=== PATIENT | male | born 1940 | race Caucasian/White ===

== ENCOUNTER 2016-05-11 06:27 | Inpatient (IN) | payer OTHER ==
[2016-04-10 14:03] VITALS: BMI 32.0
--- NOTE | 2016-04-10 14:37 | PAT Medication Instructions ---
Service Date Apr 10, 2016. Current Home Medication List Aspirin (Aspirin Ec), 325 MG PO HS Atenolol (Tenormin), 50 MG PO QPM Atorvastatin (Lipitor), 20 MG PO DHS Glimepiride (Glimepiride), 1 TAB PO QAM Levothyroxine Sodium (Levothyroxine Sodium), 1 TAB PO QAM Metformin Hcl (Glucophage), 500 MG PO BID Psyllium (Metamucil), 1 DOSE PO HS Medication Instructions For Your Scheduled Surgery - Instructions as follows: 10 days prior to surgery, switch from Aspirin 325mg to Aspirin 81mg ('baby aspirin') and continue to take the baby aspirin even the night before the surgery - Hold the following medications 48 hours prior to surgery: Metformin Hcl (Glucophage), 500 MG PO BID - Hold the following medications the morning of surgery: Glimepiride (Glimepiride), 1 TAB PO QAM - Take the following medications the morning of surgery with a sip of water OTHERWISE NOTHING TO EAT OR DRINK AFTER MIDNIGHT: Levothyroxine Sodium (Levothyroxine Sodium), 1 TAB PO QAM - Take the following medications as scheduled the night before surgery: Atorvastatin (Lipitor), 20 MG PO DHS Psyllium (Metamucil), 1 DOSE PO HS Atenolol (Tenormin), 50 MG PO QPM Aspirin 81mg If you have any questions please call us at [phone] or [phone] or [phone]
--- NOTE | 2016-04-10 16:00 | DIAGNOSTIC IMAGING REPORT ---
CHEST PREADMISSION(PA/LAT) CLINICAL HISTORY: Preoperative evaluation COMPARISON STUDY: Chest radiograph May 24, 2012 FINDINGS: Lung volumes are normal. There is no pneumothorax or pleural effusion. Pulmonary vascularity is normal. Cardiac size is normal. Mediastinal contours are stable. Numerous calcified nodules within the lungs are unchanged. This suggests a prior granulomatous process. No consolidation is identified. IMPRESSION: No acute cardiopulmonary findings. Electronically signed by: Mitchel Emerson M.D. 04/10/2016 3:59 PM
[2016-04-10 16:02] LABS: PROTHROMBIN TIME (PATIENT) 10.5 SECONDS (9.0-12.0)
--- NOTE | 2016-05-06 11:11 | HISTORY & PHYSICAL EXAMINATION ---
DATE OF ADMISSION: 05/11/2016 CHIEF COMPLAINT: Right medial knee pain and discomfort. HISTORY OF PRESENT ILLNESS: The patient is a 75-year-old gentleman now 9 years out from a left partial knee replacement who presents for treatment of his right knee. He has got a several year history of increasing right knee pain and discomfort. He describes it has just gotten worse over time. Pain is localized medial side of his knee. He has has been through extensive conservative treatment including oral medicines and injections. The shots helped him pretty minimally. He is having more difficulty getting around. He would like to proceed with definitive treatment/knee replacement. He is very happy with his left knee and if possible he wanted to do a partial knee replacement on the right. PAST MEDICAL HISTORY: 1. Coronary artery disease, status post cardiac stent placement in 2001 done in [place]. 2. One aspirin a day. 3. Hypertension. 4. Elevated cholesterol. 5. Diabetes. 6. Back pain status post multiple back surgeries. 7. Gastroesophageal reflux disease. 8. Kidney stones. 9. BPH. PAST SURGICAL HISTORY: Includes: 1. Three back surgeries. 2. Left partial knee replacement done 05/31/2007. 3. Herniorrhaphy. 4. Appendectomy. ALLERGIES: SULFA. CURRENT MEDICINES: Include: 1. Metformin 1000 mg in the morning. 2. Glimepiride 1 mg in the morning. 3. Atenolol 50 mg once a day. 4. Atorvastatin 20 mg a day. 5. Levothyroxine 100 mcg a day. 6. Ana Aspirin 325 once a day. 7. Metamucil once a day. SOCIAL HISTORY: male. He is from [place]. He is 75. FAMILY HISTORY: Noncontributory. REVIEW OF SYSTEMS: Significant for diabetes. Denies any current chest pain, shortness of breath. No history of DVT or PE. He does have a cardiac stent placed. PHYSICAL EXAMINATION: GENERAL: Physical examination reveals a healthy, pleasant, middle-aged male. He looks to be in pretty good health. HEAD, EYES, EARS, NOSE, AND THROAT EXAMINATION: Benign. NECK: Supple. No lymphadenopathy. LUNGS: Clear to auscultation. HEART: Regular rate and rhythm. ABDOMEN: Soft, nontender, nondistended. EXTREMITY EXAMINATION: Grossly neurovascularly intact except as follows: Examination of the right knee reveals the patient walks with a slight bit of a limp. He has got varus alignment to his knee. He is tender over the medial joint line. He has got some slight bony hypertrophy medially. Range of motion is near full extension to 125 degrees of flexion. No instability. X-RAYS: X-rays of the right knee reviewed. It shows advanced medial compartment DJD. He has got well preserved lateral joint space. He has got complete loss of the medial joint space. With stress films the lateral compartment is well preserved. He has got some mild patellofemoral arthritis. ASSESSMENT: A 75-year-old gentleman 9 years out from a left partial knee replacement with advanced medial compartment DJD in the right knee. He has failed conservative treatment, would like to have a partial knee replacement on his right side. PLAN: We are going to take her to the operating room and do a right partial knee replacement. If we get in there and it is too bad we will do a full knee replacement. The risks and benefits of this procedure were explained to the patient including but not limited to DVT, PE, , infection, neurological injury, vascular injury, bleeding problem, pain, limited range of motion, stiffness, failure to relieve symptoms, incomplete relief of symptoms, need for further surgery in the future, fracture, leg length inequality, nerve palsy, and dislocation of the implant. The patient understands and desires to proceed. Informed consent was obtained. We did talk to him about holding his metformin 2 days preop. He will make sure he takes his atenolol and levothyroxine mcg the morning of surgery. I will be seeing him back 2 weeks postop.
[2016-05-11] VITALS (11 sets, daily range): BP systolic 121–147; BP diastolic 68–86; PULSE 51–61; TEMP 36.3–37.1; O2SAT 95–98; Ht 172.7 cm; Wt 97.4 kg
[~2016-05-11] VITALS: Ht 172.7 cm; Wt 97.4 kg
[~2016-05-11 06:27] MED LIST: ACETAMINOPHEN 500 MG TAB PO SCH; ASPI325T39 PO; ATEN-174 PO; ATOR-22 PO; BUPIVACAINE LIPOSOME 266 MG, BUPIVACAINE/EPINEPHRINE INJ 50 ML, SODIUM CHLORIDE 0.9% PF... INFIL SCH; CEFAZOLIN 2000 MG/60 ML D5W 60 ML IV SCH; FAMOTIDINE 20 MG TAB PO SCH; GABAPENTIN 300 MG CAP PO SCH; GLC/500 PO; GLIM1TAB2 PO; LACTATED RINGER'S 1000ML IV SCH; LACTATED RINGER'S 500 ML IV SCH; LEVO100T7 PO; METOCLOPRAMIDE HCL 10 MG TAB PO SCH; PSYL0.524 PO; SCOPOLAMINE 1.5 MG TDSY TD SCH; TRAMADOL HCL 50 MG TAB PO SCH
[2016-05-11] MEDS ORDERED: TRANEXAMIC ACID INJ 1,000 MG in SODIUM CHLORIDE 0.9% 100ML 100 ML IV SCH ×2 (06:30→17:00)
[2016-05-11] MEDS ORDERED: BUPIVACAINE LIPOSOME 1/3% 266 MG/20 ML VIAL INFIL ONE (06:50)
--- NOTE | 2016-05-11 06:51 | History & Physical Bridge Note ---
H&P Re-Evaluation Bridge Note: I have examined the patient, reviewed the History & Physical and in the interval since the performance of the History & Physical I have noted the following changes of clinical significance: No changes noted
[2016-05-11] MEDS ORDERED: BUPIVACAINE 0.5 % 5 MG/1 ML PF 10ML VIAL ONE (07:04)
[2016-05-11] MEDS ORDERED: BUPIVACAINE 0.25% 30 ML VIAL ONE (07:05)
[2016-05-11] MEDS ORDERED: MIDAZOLAM HCL 1 MG/ML 2ML VIAL ONE (07:24)
[2016-05-11] MEDS ORDERED: FENTANYL CITRATE INJ 50 MCG/1 ML 2 ML VIAL IV PRN (07:30)
[2016-05-11] MEDS ORDERED: ONDANSETRON INJ 2 MG/ML 2 ML VIAL IV PRN ×2 (07:30→11:00)
[2016-05-11] MEDS ORDERED: EpHEDrine SULFATE INJ 50 MG/ML AMP IV PRN (07:30)
[2016-05-11] MEDS ORDERED: ATROPINE SULFATE 0.1 MG/ML 5ML SYR IV PRN (07:30)
[2016-05-11] MEDS ORDERED: PROPOFOL IV EMULSION 10 MG/ML 20 ML VIAL IV ONE (09:19)
[2016-05-11] MEDS ORDERED: BACITRACIN 50000 UNIT VIAL IR ONE (10:53)
--- NOTE | 2016-05-11 10:59 | [facility] Post Operative Brief Note ---
Immediate Operative Summary Operative Date May 11, 2016. Pre-Operative Diagnosis Degenerative joint disease of right knee Post-Operative Diagnosis Samr as pre-operative diagnosis Procedure(s) Performed Right arthroplasty Uni/Partial Knee Surgeon Dr. Madi Joel Punch Press Operator Helper Surgeon(s) Bonilla Adkins PA-C Estimated Blood Loss 20 Findings Right Medial Compartment DJD of Knee Fluids (cc crystalloids) 1300 cc Specimens Righ knee bone and tissue Drains None Anesthesia Spinal Complication(s) None Disposition Recovery Room / PACU
[2016-05-11] MEDS ORDERED: TRAMADOL HCL 50 MG TAB PO PRN (11:00)
[2016-05-11] MEDS ORDERED: METOCLOPRAMIDE HCL INJ 5 MG/ML 2 ML VIAL IV PRN (11:00)
[2016-05-11] MEDS ORDERED: MAGNESIUM HYDROXIDE SUSP 30 ML UDC PO PRN (11:00)
[2016-05-11] MEDS ORDERED: ALUMINUM/MAGNESIUM/SIMETH (MAALOX MAX) 30 ML UDC PO PRN (11:00)
[2016-05-11] MEDS ORDERED: ZOLPIDEM TARTRATE 5 MG TAB PO PRN (11:00)
[2016-05-11] MEDS ORDERED: DiphenhydrAMINE HCL 50 MG/ML VIAL IV PRN (11:00)
[2016-05-11] MEDS ORDERED: BISACODYL 10 MG SUPP PR PRN (11:00)
[2016-05-11] MEDS ORDERED: MoRPHine SULFATE 2 MG/ML CARP IV PRN (11:00)
--- NOTE | 2016-05-11 11:37 | OPERATIVE REPORT ---
DATE OF OPERATION: 05/11/2016 PREOPERATIVE DIAGNOSIS: Right knee medial compartment degenerative joint disease. POSTOPERATIVE DIAGNOSIS: Same. PROCEDURE PERFORMED: Right Biomet Frederick mobile bearing partial knee replacement. SURGEON: Madi Joel M.D. GROUNDSKEEPER SUPERVISOR: Stephon Adkins PA-C. COMPLICATIONS: None. ESTIMATED BLOOD LOSS: 20 mL. FLUID REPLACEMENT: 1300 mL crystalloid fluid replacement. TOURNIQUET TIME: 68 minutes at 300 mmHg. ANESTHESIA: Spinal. OPERATIVE INDICATIONS: The patient is a 75-year-old gentleman who has a long history of knee pain and discomfort and degenerative arthritis. He underwent a left partial knee replacement 8 years ago. He did quite well with this. We have been treating him conservatively for his right knee for several years. Pain has become more unbearable and unresponsive to conservative treatment. His symptoms localized to the medial side of his knee. The patient would like to proceed with operative treatment. OPERATIVE FINDINGS: Operative findings revealed advanced medial compartment DJD. He had grade 4 changes pretty diffuse to the medial femoral condyle and more focally of the medial tibial plateau. The ACL and PCL were intact. The lateral compartment was well preserved. The patella was fairly well preserved. He did have some grade 3 changes in portions of the trochanter. OPERATIVE IMPLANTS: Operative implants consisted of: 1. Biomet Frederick size large femoral component. 2. Biomet right medial size C tibial tray. 3. A 5 mm mobile bearing polyethylene insert. OPERATIVE PROCEDURE: The patient was taken to the operating room, identified and placed on the operating table in supine position. All contact areas were appropriately padded. IV antibiotics provided by anesthesia team. A spinal anesthetic had been implemented in the holding area. Figueredo catheter was placed in sterile fashion. Right thigh tourniquet was then placed and the right lower extremity was then prepped and draped in the usual sterile fashion. The right leg was elevated and exsanguinated with use of an Esmarch and tourniquet was placed at 300 mmHg. An anterior approach to the knee was then performed through a longitudinal incision beginning at the superior pole of the patella and extending just medial to the tibial tubercle. Sharp dissection was carried out through the subcutaneous tissues down to the level of the extensor mechanism. Full thickness flaps were elevated. A medial parapatellar arthrotomy incision was made. Some slight subperiosteal dissection was carried out medially. The fat pad was resected from beneath the patellar tendon. I did resect a little bit of the medial portion of the patella as it was in our way and it was relatively low lying. The knee was flexed. The osteophytes were taken off the intercondylar notch area. The external tibial alignment jig was then placed in the anterior face of the tibia using the large femoral spoon as well as the 4 G clamp. The tibial guide was pinned to the tibia. The proximal tibial cut was made. I did take a fairly significant piece of bone from the tibia. The tibia was sized to a size C. Attention was then drawn to the femur. The distal femur was entered with a sharp drill. Intramedullary guide was placed. A large femoral template was placed. This was hooked to the IM donis. The holes were drilled for the femoral template. The posterior cutting guide was placed and the posterior cut was made. The 0 spigot was placed. The distal femur was milled. We then trialed the knee and the 5 insert fit appropriately in flexion and the 2 in extension. We then used a 3 spigot and milled the femur again. This time the flexion and extension gaps were equal and the 5 feeler gauge fit appropriately in both. All trial implants were removed. The posterior cutting guide was placed and the posterior osteophyte was removed. The milling device was used to create the recessed area anteriorly for the femoral component. The tibial tray was then pinned in place and the toothbrush saw was used to create the defect for the keel of the tibial tray. We then trialed the knee and all implants fit appropriately. A 5 insert fit most appropriately. It was a little on the loose side but I felt the 6 was too tight. Attention was then drawn toward placement of the permanent components. All trial components were removed. I irrigated the wound extensively. We did inject locally with 100 mL of a combination of 20 mL of Exparel, 30 mL of normal saline, 50 mL of 0.25% Marcaine with epinephrine. The single batch of Palacos G cement was mixed. A right medial size C tibial tray was then cemented in place followed by a large femoral component. I used a 6 feeler gauge to pressurize the cement. All extraneous cement was removed. The knee was brought out into 30-40 degrees short of full extension until the cement hardened. Once the cement hardened, a final cement check was performed. A 5 mm mobile bearing insert was then placed. Attention was then drawn toward closing. The wound was irrigated with copious amounts of pulsatile lavage solution. The capsular repair was then performed with #1 Vicryl suture in a [id number] fashion. The subcutaneous tissues were then closed with 2-0 Dexon suture in a buried interrupted fashion. Skin was closed skin roselyn. Leg was then cleaned and dried and a sterile dressing of Xeroform, 4 x 4's, sterile cast padding and Asim bandage were applied. The patient then transferred to the recovery room in stable condition. The patient tolerated the procedure well with no complications. All needle and sponge counts were correct at the end of the operation. I attest to the content of the Intraoperative Record and any orders documented therein. Any exceptions are noted below. AURAD
--- NOTE | 2016-05-11 11:55 | Anesthesiology Progress Note ---
Anesthesia Post Op Note Date & Time May 11, 2016 at 11:54 Vital Signs Pain Intensity: 0 Vital Signs Past 12 Hours Date Time Temp Pulse Resp B/P Pulse Ox O2 Delivery O2 Flow Rate FiO2 05/11/16 11:40 59 14 132/75 99 Nasal Cannula 2 05/11/16 11:30 53 16 130/71 97 Nasal Cannula 2 05/11/16 11:20 55 16 123/75 96 Nasal Cannula 2 05/11/16 11:10 57 18 124/64 96 Nasal Cannula 2 05/11/16 11:06 36.0 70 18 133/55 92 Room Air 05/11/16 07:15 36.7 56 18 144/85 95 Room Air Notes Mental Status: alert / awake / arousable, participated in evaluation Pt Amnestic to Procedure: Yes Nausea / Vomiting: adequately controlled Pain: adequately controlled Airway Patency, RR, SpO2: stable & adequate BP & HR: stable & adequate Hydration State: stable & adequate Neuraxial Anesthesia: was administered, sensory block is resolving Anesthetic Complications: no major complications apparent
--- NOTE | 2016-05-11 12:35 | DIAGNOSTIC IMAGING REPORT ---
RIGHT KNEE 1 OR 2 VIEWS ROUTINE CLINICAL HISTORY: Osteoarthritis COMPARISON: None. DISCUSSION: There are postsurgical changes of a medial joint compartment arthroplasty. There are no acute fractures. There is air within the soft tissues consistent with recent surgery. There are overlying skin roselyn. IMPRESSION: Postsurgical changes of a medial joint compartment arthroplasty Electronically signed by: Stevo Araujo M.D. 05/11/2016 12:32 PM Dictated Date/Time: 05/11/2016 12:32 PM
[2016-05-11] MEDS: CHECK SCOPOLAMINE PATCH PLACEMENT SCH (14:07)
[2016-05-11] MEDS: ACETAMINOPHEN 500 MG TAB PO SCH ×2 (14:09→21:37)
[2016-05-11] MEDS: SODIUM CHLORIDE 0.9% 1000ML 1,000 ML IV SCH ×2 (14:09→23:23)
[2016-05-11] MEDS: KETOROLAC TROMETHAMINE 15 MG/ML VIAL IV. SCH ×2 (14:18→20:29)
[2016-05-11] MEDS ORDERED: DEXTROSE 50% 50 ML SYR IV PRN (14:45)
[2016-05-11] MEDS ORDERED: GLUCOSE 40% GEL 15 GM TUBE PO PRN (14:45)
[2016-05-11] MEDS ORDERED: GLUCOSE 10 TABS/TUBE PO PRN (14:45)
[2016-05-11] MEDS ORDERED: GLUCAGON FOR INJ 1 MG VIAL SQ PRN (14:45)
--- NOTE | 2016-05-11 15:57 | PROGRESS NOTE ---
DATE: 05/11/2016 SUBJECTIVE: A 75-year-old gentleman postop from a right partial knee replacement. He is doing well. Not having any pain yet. No chest pain or shortness of breath. Not feeling dizzy or lightheaded. OBJECTIVE: VITAL SIGNS: Temperature 36.8. Vital signs stable. GENERAL: Reveals a healthy, pleasant, middle-aged male. He is sitting up in bed and looks comfortable. He is talking to his . LUNGS: Clear to auscultation. HEART: Regular rate and rhythm. ABDOMEN: Soft, nontender, nondistended. EXTREMITIES: Grossly neurovascularly intact except as follows. Examination of the right lower extremity reveals the leg to be well aligned. Dressing is clean, dry, and intact. He can dorsiflex and plantarflex his foot appropriately. He has got brisk refill. X-RAYS: X-rays of the right knee from recovery room were reviewed. It shows a right partial knee replacement. Components looked to be in good position. No signs of problems. ASSESSMENT: A 75-year-old gentleman postop from a right partial knee replacement, doing well. His pain is controlled. He is neurologically intact. PLAN: 1. DVT prophylaxis including thigh-high TEDs, SCDs, and aspirin twice a day. 2. PT/OT. Weightbearing as tolerated. Right total knee protocol. 3. IV antibiotics x 24 hours. 4. Pain control, doing well with current pain regimen. 5. Disposition: Plan is to discharge him to home and do outpatient therapy once recovered.
[2016-05-11 16:00] LABS: CREATININE 1.2 mg/dl (0.60-1.40)
[2016-05-11] MEDS: INSULIN HUMAN REGULAR SC SCH ×2 (17:12→21:40)
[2016-05-11] MEDS: CEFAZOLIN IV 2,000 MG in DEXTROSE 5% 50ML 50 ML IV SCH (17:47)
[2016-05-11] MEDS ORDERED: ULT50X PO (19:42)
[2016-05-11] MEDS ORDERED: ASPEC325 PO (19:42)
[2016-05-11] MEDS ORDERED: ACET-1138 PO (19:42)
--- NOTE | 2016-05-11 19:45 | Discharge Instructions ---
Discharge Instructions Admission Reason for Admission: Right Knee Osteoarthritis Discharge Discharge Diagnosis / Problem: Right Partial Knee Replacement Discharge Goals Goal(s): Decrease discomfort, Improve function, Increase independence, Improve disease control, Therapeutic intervention Activity Recommendations Activity Limitations: per Instructions/Follow-up section Weightbearing Status: Right weightbearing . Instructions / Follow-Up Instructions / Follow-Up ACTIVITY RECOMMENDATIONS: Physical Therapy: * You will go to physical therapy three times each week for four to six weeks after your surgery in order to regain your knee range of motion and to retrain your knee to work properly. * It is just as important to make sure you are getting your knee perfectly straight as it is to regain your knee bend. * Taking a pain pill an hour before therapy can help you have a more productive and comfortable therapy session. Home Exercise: * You were shown a series of exercises (heel props, heel slides, etc.) in the hospital. Do these exercises three to four times each day including the exercises you were shown in physical therapy. Walking: * Get up and walk several times each day. For the first four weeks, try not to stand or walk for more than one hour at a time. If you do stand or walk for more than one hour, you will not hurt anything, but your knee and leg will likely swell. * As you feel comfortable, you may change from the walker or crutches to a cane and then to independent walking. MEDICATIONS: New Medicine: * You will likely be taking one or more of these medications: 1. Tramadol - A quick and shorter-acting pain medication. Take one to two tablets every four to six hours to lessen your pain. 2. Aspirin - Thins your blood to lessen the chance of forming a blood clot. * The most common side effects of pain medicine and iron are nausea and constipation. If nausea or constipation is too much of a problem or if you have any questions about your new medicines or doses, call [facility] at [phone]. We will try to help you manage these issues. VERY IMPORTANT TO READ AND REVIEW" Pain: * The immediate post-operative period after knee replacement surgery is often quite painful. * You are given a prescription for pain medicine. You should take it, as directed, when you need it, especially before physical therapy and before going to bed. Pain that interferes with sleep is very common and can last several months. * You will likely need pain medicine for the first four to six weeks. It will not stop all of the pain. The pain will lessen and as you feel better, you may change to milder pain medicine such as Tylenol. * The most common side effects of pain medicine are nausea and constipation, so don't take more than you need. SPECIAL CARE INSTRUCTIONS: TEDs/Elastic Stockings: * The white elastic stockings help limit swelling and prevent blood clots from forming in your legs. The more you wear them, the more they work. * Wear them for six weeks after knee replacement surgery and four weeks after partial knee replacement. Prevention of Infection: * Take antibiotics one hour before any dental cleaning, dental work, urological procedure, gastrointestinal procedure or any invasive surgery in order to prevent your new joint from getting infected. * You may get the antibiotics from the doctor performing the procedure or you may call our office at before and we will call in a prescription to the pharmacy of your choice. Things to Watch For: * Drainage from the incision site that occurs more than one week after your surgery. * Severely increased knee/leg pain or swelling. * Increased redness at the incision site. * Fever above 102 degrees Fahrenheit. * Unusual chest pain or shortness of breath. * Unusual pain or burning with urination. Call [facility] at with any of the above problems or if you have any questions about your medicines or recovery. FOLLOW UP VISIT: Make an appointment to see your doctor for approximately two weeks after surgery for a progress check and staple removal by calling the office at . Current Hospital Diet Patient's current hospital diet: Diabetes Type 2 Diet Discharge Diet Recommended Diet: Diabetes Type 2 Diet Procedures Procedures Performed: Right arthroplasty Uni/Partial Knee Pending Studies Studies pending at discharge: no Medical Emergencies . Who to Call and When: Medical Emergencies: If at any time you feel your situation is an emergency, please call 616 immediately. . Non-Emergent Contact Non-Emergency issues call your: Surgeon . "Provider Documentation" section prepared by Madi Joel. VTE Core Measure Inpt VTE Proph given/why not?: Other Anticoagulation, T.E.D. Stockings, SCD's
[2016-05-11] MEDS: DOCUSATE SODIUM 100 MG CAP PO SCH (20:29)
[2016-05-11] MEDS: ASPIRIN 325 MG ECTAB PO SCH (20:30)
[2016-05-11] MEDS ORDERED: ATORVASTATIN 20 MG TAB PO SCH (21:00)
[2016-05-11] MEDS ORDERED: PSYLLIUM 58.6% PWD PACK S\\F PO SCH (21:00)
[2016-05-12] MEDS: KETOROLAC TROMETHAMINE 15 MG/ML VIAL IV. SCH ×2 (01:39→07:48)
[2016-05-12] MEDS: CEFAZOLIN IV 2,000 MG in DEXTROSE 5% 50ML 50 ML IV SCH (01:39)
[2016-05-12 03:13] VITALS: BP 127/77; PULSE 60; TEMP 37.1; O2SAT 94
[2016-05-12] MEDS ORDERED: LEVOTHYROXINE 100 MCG TAB PO SCH (06:00)
[2016-05-12] MEDS: ACETAMINOPHEN 500 MG TAB PO SCH (06:09)
--- NOTE | 2016-05-12 07:31 | Anesthesiology Progress Note ---
Anesthesia Post Op Note Date & Time May 12, 2016 at 07:31 Vital Signs Pain Intensity: 1.0 Vital Signs Past 12 Hours Date Time Temp Pulse Resp B/P Pulse Ox O2 Delivery O2 Flow Rate FiO2 05/12/16 03:13 37.1 60 16 127/77 94 Room Air 05/12/16 00:00 Room Air 05/11/16 23:07 37.1 58 16 130/79 95 Room Air 05/11/16 20:33 61 135/79 Notes Mental Status: alert / awake / arousable, participated in evaluation Pt Amnestic to Procedure: Yes Nausea / Vomiting: adequately controlled Pain: adequately controlled Airway Patency, RR, SpO2: stable & adequate BP & HR: stable & adequate Hydration State: stable & adequate Neuraxial Anesthesia: was administered, sensory block resolved Anesthetic Complications: no major complications apparent
[2016-05-12] MEDS: ASPIRIN 325 MG ECTAB PO SCH (07:49)
[2016-05-12] MEDS: DOCUSATE SODIUM 100 MG CAP PO SCH (07:50)
[2016-05-12] MEDS: INSULIN HUMAN REGULAR SC SCH (07:50)
[2016-05-12] MEDS: CHECK SCOPOLAMINE PATCH PLACEMENT SCH ×2 (07:51)
[2016-05-12 08:01] VITALS: BP 127/84; PULSE 58; TEMP 36.7; O2SAT 95
[2016-05-12] MEDS ORDERED: MULTIVITAMIN TAB PO SCH (09:00)
[2016-05-12] MEDS ORDERED: PANTOprazole SOD 40 MG TAB PO SCH (09:00)
[2016-05-12] MEDS ORDERED: GLIMEPIRIDE 2 MG TAB PO SCH (09:00)
--- NOTE | 2016-05-12 09:24 | PROGRESS NOTE ---
DATE: 05/12/2016 SUBJECTIVE: A 75-year-old gentleman postop day 1 from a right partial knee replacement. He is doing well. Denies any pain. Therapy has gone well. He has been walking in the hallways and can walk even independently. No chest pain or shortness of breath. Not feeling dizzy or lightheaded. OBJECTIVE: VITAL SIGNS: Temperature is 36.7. Vital signs stable. PHYSICAL EXAMINATION: GENERAL: Reveals a healthy, pleasant, middle-aged male. He is sitting up at his bedside chair and looks comfortable. LUNGS: Clear to auscultation. HEART: Regular rate and rhythm. ABDOMEN: Soft, nontender, nondistended. EXTREMITIES: Grossly neurovascularly intact except as follows. Examination of the right lower extremity reveals the dressing to be clean, dry, and intact. He can do a straight leg raise. He can dorsiflex and plantarflex his foot appropriately. He is neurologically intact. ASSESSMENT: A 75-year-old gentleman postop day 1 from a right partial knee replacement, doing well. He is not really having any significant pain. He is functioning quite well. PLAN: 1. DVT prophylaxis including thigh-high TEDs, SCDs, and aspirin twice a day. 2. PT/OT. Weightbearing as tolerated. Right total knee protocol. 3. Pain control, doing pretty well with current pain regimen. 4. Disposition: He is planning to be discharged to home and he can do outpatient therapy once adequately recovered.
[2016-05-12 10:06] VITALS: BP 127/84; PULSE 58; TEMP 36.7; O2SAT 95
[2016-05-12] MEDS: SODIUM CHLORIDE 0.9% 1000ML 1,000 ML IV SCH (10:48)
--- NOTE | 2016-05-23 04:08 | DISCHARGE SUMMARY ---
ADMITTING PHYSICIAN AND SURGEON: Dr. Joel. ADMITTING DIAGNOSIS: Right knee medial compartment degenerative joint disease. SURGERY PERFORMED: Right partial knee replacement. SECONDARY DIAGNOSES: Include coronary artery disease, hypertension, elevated cholesterol, diabetes, back pain, gastroesophageal reflux disease, kidney stones, and benign prostatic hypertrophy. HISTORY AND PHYSICAL EXAMINATION: Well documented in the patient's chart. HOSPITAL COURSE: The patient was admitted on 05/11/2016 underwent unicompartmental arthroplasty. He tolerated the procedure well. There were no complications. He was transferred to the PACU postoperatively and later to the orthopedic floor for further care. He was given Ancef for antibiotic prophylaxis, EVA stockings, SCDs and aspirin for DVT prophylaxis. His vital signs monitored during his hospital stay remained stable. There were no complications. He did not require any blood transfusions. By postoperative day 1, he was tolerating a diabetic diet. Pain was controlled with oral pain medicine. He was participating in physical therapy. He had no signs or symptoms of deep vein thrombosis. On postop day 1, he was discharged home in good condition. He was given printed discharge instructions including prescriptions for extra strength Tylenol, aspirin 325 mg b.i.d. and tramadol. Continue his home medicines with the exception of his home dose of aspirin, which was adjusted. Continue physical therapy, weightbearing as tolerated, EVA stockings. Follow up with Dr. Joel in 10-12 days or sooner if there are problems or concerns.
== END 2016-05-12 12:15 | disposition home or self-care (01) | DRG 470 ==
LOC: ENRESERVTM → ENRESERVDT → C.ACU 06:27 → C.3E 06:45
PROVIDERS: ADMIT Orthopaedic Surgery Sports Medicine; ATTEND Orthopaedic Surgery Sports Medicine
PROC: 0SRC0J9 Replacement of Right Knee Joint with Synthetic Substitute, Cemented, Open Approach (ICD-10-PCS; principal; 2016-05-11 09:05)
DX: M17.11 Unilateral primary osteoarthritis, right knee (principal); K21.9 Gastro-esophageal reflux disease without esophagitis; N40.0 Benign prostatic hyperplasia without lower urinary tract symptoms; E78.00 Pure hypercholesterolemia, unspecified; I25.10 Atherosclerotic heart disease of native coronary artery without angina pectoris; E11.9 Type 2 diabetes mellitus without complications; I10 Essential (primary) hypertension; E03.9 Hypothyroidism, unspecified; M54.5 Low back pain; M54.6 Pain in thoracic spine; E78.5 Hyperlipidemia, unspecified; F17.210 Nicotine dependence, cigarettes, uncomplicated; E66.9 Obesity, unspecified; Z68.32 Body mass index [BMI] 32.0-32.9, adult; Z96.652 Presence of left artificial knee joint; Z95.5 Presence of coronary angioplasty implant and graft; Z79.82 Long term (current) use of aspirin; Z79.84 Long term (current) use of oral hypoglycemic drugs; Z79.899 Other long term (current) drug therapy

== ENCOUNTER → 2016-07-20 | Outpatient (CLI) | payer OTHER ==
[~2016-07-20] MED LIST changes: +ACET-1138 PO; -ACETAMINOPHEN 500 MG TAB PO SCH; +ASPEC325 PO; -ASPI325T39 PO; -BUPIVACAINE LIPOSOME 266 MG, BUPIVACAINE/EPINEPHRINE INJ 50 ML, SODIUM CHLORIDE 0.9% PF... INFIL SCH; -CEFAZOLIN 2000 MG/60 ML D5W 60 ML IV SCH; -FAMOTIDINE 20 MG TAB PO SCH; -GABAPENTIN 300 MG CAP PO SCH; -LACTATED RINGER'S 1000ML IV SCH; -LACTATED RINGER'S 500 ML IV SCH; -METOCLOPRAMIDE HCL 10 MG TAB PO SCH; +OPTIRAY 320 IV PRN; -SCOPOLAMINE 1.5 MG TDSY TD SCH; -TRAMADOL HCL 50 MG TAB PO SCH; +ULT50X PO
--- NOTE | 2016-07-20 08:17 | DIAGNOSTIC IMAGING REPORT ---
CT SCAN OF THE CHEST WITH IV CONTRAST CLINICAL HISTORY: Pulmonary nodules. COMPARISON STUDY: Chest x-ray dated 04/10/2016. TECHNIQUE: Following the IV administration of 93 cc of Optiray 320, CT scan of the thorax was performed from the thoracic inlet to the upper abdomen. Images are reviewed in the axial, sagittal, and coronal planes. IV contrast was administered without complication. CT DOSE: 590.72 mGy.cm FINDINGS: Thyroid: Atrophic. Thoracic aorta: There is mild atherosclerotic calcification of the thoracic aorta, which is normal in caliber and demonstrates standard 3-vessel arch anatomy. No dissection is seen. Pulmonary vasculature: The pulmonary trunk is normal in caliber. There are no filling defects identified in the central pulmonary vessels to indicate pulmonary embolus. Note that this examination was not protocoled for evaluation of the pulmonary arteries. Heart: The heart is normal in size and configuration, and without pericardial effusion. The coronary arteries are densely calcified. Lungs and pleural spaces: Emphysematous change is noted. There is no airspace consolidation or pleural effusion. Numerous calcified granulomas are identified. The trachea and central airways are clear. There is a 4 mm noncalcified pleural-based nodule in the right lower lobe seen on image #189. Mediastinum: There is no mediastinal lymphadenopathy. There are calcified mediastinal lymph nodes. Danielle: Clear. There are calcified hilar nodes. Axillae: There is no axillary lymphadenopathy. Upper abdomen: There is a tiny hiatal hernia. Numerous calcified granulomas are present in the liver and spleen. A 1. Centimeters cyst is noted in the left hepatic lobe. There are cysts seen in the partially imaged kidneys which measure up to 3.7 cm. Skeletal structures: The skeletal structures are osteopenic. No lytic or blastic bony lesions are seen. Mild arthritic change is noted in the shoulders and thoracic spine. Lumbar spinal fusion hardware is partially imaged. IMPRESSION: 1. Emphysema. 2. There is no airspace consolidation or pleural effusion. 3. There is a 4 mm pleural-based nodule in the right lower lobe. This can be followed as per the Fleischner criteria. See below. 4. There is evidence of remote granulomatous infection, including numerous calcified pulmonary granulomas, calcified mediastinal and hilar lymph nodes, as well as calcified hepatic and splenic granulomas. 5. Additional changes as above. Please refer to below summary of Fleischner criteria recommendations for follow-up of incidental CT nodules (Lesli Blackburn, Guidelines for management of small pulmonary nodules detected on CT scans: A statement from the Fleischner Society, Radiology 237: [phone].) SOLID NODULES Solitary nodule size: <6 mm * low risk patients: no follow-up needed * high risk patients: optional CT at 12 months Solitary nodule size: 6-8 mm * low risk patients: follow-up at 6-12 months, then consider further follow-up at 18-24 months * high risk patients: initial follow-up CT at 6-12 months and then at 18-24 months if no change Solitary nodule size: >8 mm * either low or high risk patients - consider follow-up CT at 3 months, and/or CT-PET, and/or biopsy Multiple nodules size: <6 mm * low risk patients: no routine follow-up * high risk patients: optional CT at 12 months Multiple nodules size: 6-8 mm * low risk patients: follow-up at 3-6 months, then consider further follow-up at 18-24 months * high risk patients: follow-up at 3-6 months, then at 18-24 months if no change Multiple nodules size: >8 mm * low risk patients: follow-up at 3-6 months, then consider further follow-up at 18-24 months * high risk patients: follow-up at 3-6 months, then at 18-24 months if no change Note: newly detected indeterminate nodule in persons 35 years of age or older. * low risk patients: minimal or absent history of smoking and/or other known risk factors * high risk patients: history of smoking or of other known risk factors (e.g. first degree relative with lung cancer, or exposure to asbestos, radon, uranium) * if a nodule up to 8 mm is partly solid or is ground glass further follow-up is required after 24 months to exclude possible slow growing adenocarcinoma (AUBREY) SUBSOLID NODULES Solitary pure ground-glass nodule * nodule size <6 mm - no CT follow-up required * nodule size >=6 mm - follow-up CT at 6-12 months, then every 2 years until 5 years Solitary part-solid nodule * nodule size <6 mm - no CT follow-up required * nodule size >=6 mm - follow-up CT at 3-6 months. If unchanged, and solid component remains <6 mm, then annual follow-up for 5 years Multiple subsolid nodules * nodule size <6 mm - follow-up CT at 3-6 months, consider further follow-up at 2 and 4 years if stable * nodule size >=6 mm - follow-up CT at 3-6 months, subsequent management based on the most suspicious nodule(s) Electronically signed by: Bal Leyva M.D. 07/20/2016 8:16 AM Dictated Date/Time: 07/20/2016 8:10 AM
== END | disposition home or self-care (01) ==
LOC: C.CTS 06:11
PROVIDERS: ATTEND Physician Assistant
DX: R91.1 Solitary pulmonary nodule (principal); J43.9 Emphysema, unspecified; R91.8 Other nonspecific abnormal finding of lung field

== ENCOUNTER → 2017-08-02 | Outpatient (CLI) | payer OTHER ==
[~2017-08-02] MED LIST changes: -OPTIRAY 320 IV PRN
--- NOTE | 2017-08-02 09:50 | DIAGNOSTIC IMAGING REPORT ---
CT SCAN OF THE CHEST WITHOUT IV CONTRAST CLINICAL HISTORY: Pulmonary nodule follow-up. COMPARISON STUDY: Chest CT dated 07/20/2016. TECHNIQUE: CT scan of the thorax was performed from the thoracic inlet to the upper abdomen. Images are reviewed in the axial, sagittal, and coronal planes. IV contrast was not administered for this examination. A dose lowering protocol was utilized adhering to the principles of ALARA. CT DOSE: 508.38 mGy.cm FINDINGS: Thyroid: Atrophic. Thoracic aorta: There is mild atherosclerotic calcification of the thoracic aorta, which is normal in caliber and demonstrates standard 3-vessel arch anatomy. Heart: The heart is mildly enlarged and without pericardial effusion. The coronary arteries are densely calcified. Lungs and pleural spaces: Evaluation of the lung parenchyma is degraded by motion artifact. Emphysematous change and apical scarring are again noted. There is no airspace consolidation or pleural effusion. Dependent atelectasis is observed. Numerous calcified granulomas are identified. The trachea and central airways are clear. There is a 5 mm noncalcified pleural-based nodule in the right lower lobe seen on image #174. No new pulmonary nodule is identified. Mediastinum: There is no mediastinal lymphadenopathy. There are calcified mediastinal lymph nodes. Danielle: Not well assessed without IV contrast. Calcified hilar nodes are again noted. Axillae: There is no axillary lymphadenopathy. Upper abdomen: There is a tiny hiatal hernia. Numerous calcified granulomas are present in the liver and spleen. 2 left lobe hepatic cysts measure up to 1.7 cm. A right upper pole renal cyst is partially imaged and measures at least 4.1 cm. Skeletal structures: The skeletal structures are osteopenic. No lytic or blastic bony lesions are seen. Mild arthritic change is noted in the shoulders and thoracic spine. IMPRESSION: 1. Cardiomegaly and emphysema. 2. There is no airspace consolidation or pleural effusion. 3. There has been no significant change in appearance of a 5 mm pleural-based nodule in the right lower lobe. Continued follow-up is recommended as per the Fleischner criteria. See below. 4. No new pulmonary nodule is identified. 5. There is evidence of remote granulomatous infection, including numerous calcified pulmonary granulomas, calcified mediastinal and hilar lymph nodes, as well as calcified hepatic and splenic granulomas. 6. Additional changes as above. Please refer to below summary of Fleischner criteria recommendations for follow-up of incidental CT nodules (Lesli Blackburn, Guidelines for management of small pulmonary nodules detected on CT scans: A statement from the Fleischner Society, Radiology 237: [phone].) SOLID NODULES Solitary nodule size: <6 mm * low risk patients: no follow-up needed * high risk patients: optional CT at 12 months Solitary nodule size: 6-8 mm * low risk patients: follow-up at 6-12 months, then consider further follow-up at 18-24 months * high risk patients: initial follow-up CT at 6-12 months and then at 18-24 months if no change Solitary nodule size: >8 mm * either low or high risk patients - consider follow-up CT at 3 months, and/or CT-PET, and/or biopsy Multiple nodules size: <6 mm * low risk patients: no routine follow-up * high risk patients: optional CT at 12 months Multiple nodules size: 6-8 mm * low risk patients: follow-up at 3-6 months, then consider further follow-up at 18-24 months * high risk patients: follow-up at 3-6 months, then at 18-24 months if no change Multiple nodules size: >8 mm * low risk patients: follow-up at 3-6 months, then consider further follow-up at 18-24 months * high risk patients: follow-up at 3-6 months, then at 18-24 months if no change Note: newly detected indeterminate nodule in persons 35 years of age or older. * low risk patients: minimal or absent history of smoking and/or other known risk factors * high risk patients: history of smoking or of other known risk factors (e.g. first degree relative with lung cancer, or exposure to asbestos, radon, uranium) * if a nodule up to 8 mm is partly solid or is ground glass further follow-up is required after 24 months to exclude possible slow growing adenocarcinoma (AUBREY) SUBSOLID NODULES Solitary pure ground-glass nodule * nodule size <6 mm - no CT follow-up required * nodule size >=6 mm - follow-up CT at 6-12 months, then every 2 years until 5 years Solitary part-solid nodule * nodule size <6 mm - no CT follow-up required * nodule size >=6 mm - follow-up CT at 3-6 months. If unchanged, and solid component remains <6 mm, then annual follow-up for 5 years Multiple subsolid nodules * nodule size <6 mm - follow-up CT at 3-6 months, consider further follow-up at 2 and 4 years if stable * nodule size >=6 mm - follow-up CT at 3-6 months, subsequent management based on the most suspicious nodule(s) Electronically signed by: Bal Leyva M.D. 08/02/2017 9:48 AM Dictated Date/Time: 08/02/2017 9:42 AM
== END | disposition home or self-care (01) ==
LOC: C.CTS 09:19
PROVIDERS: ATTEND Family Medicine
DX: R91.1 Solitary pulmonary nodule (principal); I51.7 Cardiomegaly; J43.9 Emphysema, unspecified

== ENCOUNTER 2020-11-02 07:55 | Observation (INO) ==
--- NOTE | 2020-10-01 14:16 | PAT Medication Instructions ---
Medication Instructions Date of Service October 01, 2020 Home Medications Medication Instructions Recorded levetiracetam 500 mg tablet 500 mg PO BID 30 Days #60 tab 09/27/20 Continue as directed aspirin 325 mg tablet 325 mg PO QAM atenolol 50 mg tablet 50 mg PO HS atorvastatin 20 mg tablet 20 mg PO HS levothyroxine 100 mcg capsule 88 mcg PO QAM tamsulosin 0.4 mg capsule 0.4 mg PO QPM levetiracetam 500 mg tablet 500 mg PO BID ASK your prescriber and surgeon aspirin 325 mg tablet 325 mg PO QAM Take morning of surgery With a small sip of water, OTHERWISE NOTHING TO EAT OR DRINK AFTER MIDNIGHT: levothyroxine 100 mcg capsule 88 mcg PO QAM levetiracetam 500 mg tablet 500 mg PO BID Take evening before surgery atenolol 50 mg tablet 50 mg PO HS atorvastatin 20 mg tablet 20 mg PO HS tamsulosin 0.4 mg capsule 0.4 mg PO QPM levetiracetam 500 mg tablet 500 mg PO BID Other Notes If you have any questions please call us at [phone] or [phone] or [phone] or [phone]
--- NOTE | 2020-10-05 10:56 | Anesthesiology Consultation ---
Date of Service October 05, 2020 Assessment & Plan (1) Encounter for pre-operative examination: COVID Status: As of 10/05 assessment, patient denies travel to endemic area, known exposure/sick contacts, or symptoms of COVID19. Patient advised to adhere to social distancing guidelines, wear a mask in public and avoid large crowds or unnecessary travel in the 2 weeks leading up to surgery. Preoperative COVID19 testing to be completed prior to surgery per surgeon's arrangements. Pat ient encouraged to be extra cautious/conscientious with COVID precautions between COVID testing and surgery. Cardiology Office note 09/07/20 -- "Remains stable from a cardiac standpoint. Continue present medications." PATIENT GOES BY "KASI" [facility] AM DOS. Chart Review Chart Review: Acceptable Risk for Surgery and Patient seen in Pre Admission Testing Teaching & Discussion Instructed NPO after midnight before surgery, except medications with 15 cc of water. Medication instructions provided according to the PAT guidelines. History Surgery Operation Date: 11/02/20 07:00 Proposed Procedures p Right Total Hip Arthroplasty - Madi Joel MD Height/Weight Height: 5 ft 7 in Weight: 79.3 kg Allergies Allergy/AdvReac Type Severity Reaction Status Date / Time Sulfa (Sulfonamide Allergy Mild "SULFA Verified 09/27/20 09:56 Antibiotics) DRUGS": RASH oxycodone AdvReac Unknown SEVERE N/V Verified 09/27/20 09:56 Medications Home Medications Medication Instructions Recorded Confirmed Last Taken aspirin 325 mg tablet 325 mg PO QAM 04/06/20 09/27/20 Unknown atenolol 50 mg tablet 50 mg PO HS 04/06/20 09/27/20 Unknown atorvastatin 20 mg tablet 20 mg PO HS 04/06/20 09/27/20 Unknown levothyroxine 100 mcg capsule 88 mcg PO QAM 04/06/20 09/27/20 Unknown tamsulosin 0.4 mg capsule 0.4 mg PO QPM 04/06/20 09/27/20 Unknown levetiracetam 500 mg tablet 500 mg PO BID 30 Days #60 tab 09/27/20 09/27/20 Unknown Past Medical History Medical History Auditory hallucination F/U NEUROLOGY [facility]. No s/s suggestive of psychosis. 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 Borderline diabetes F/U PCP DIET MANAGED CAD (coronary artery disease) s/p stents x 3 in 2001 Enlarged prostate Hearing deficit BILAT AIDS High cholesterol Hypothyroidism Kidney stones Right groin pain Exercise / Class Metabolic Activity II 4-5 Yardwork/Stairs/Walk up hill (limited only by hip pain, golfs regularly using cart but some walking, denies CP/SOB) Past Family History Family History Father Hearing loss Heart disease Cancer Stroke Family history of diabetes mellitus Mother Cancer Brother Heart disease Family history of diabetes mellitus Other No family history of adverse response to anesthesia No family history of bleeding disorder Past Surgical History Surgical History History of anesthesia reaction SLOW TO WAKE UP/PONV 1 TIME History of appendectomy History of back surgery x3-LOWER BACK-METAL IMPLANTS History of cardiac cath 09/2001 [facility] 3 STENTS-F/U DR CASI COSTELLO History of colonoscopy 2019 History of hernia surgery History of knee surgery 2 partial knee replacements Past Anesthesia History No Hx of Anesthesia Complications (other than single ep of PONV) and No Family Hx of Anesthesia Complications History of PONV No Hx of Motion Sickness and History of PONV (single episode) Social History Smoking Status: Former smoker tobacco type: smokeless tobacco Do You Dip or Chew Tobacco: Yes (1 CAN PER 3-4 DAYS) Smoking End Date: QUIT 25 YRS AGO Hx Alcohol Use: No Hx Substance Use: No Review of Systems Pt denies any recent chest pain, shortness of breath, palpitations, cough, fever, URI, or uncontrolled acid reflux. Physical Exam Vital Signs BP: 137/80 P: 59bpm SPO2: 95% RA T: 98.3 F R: 12 ENMT Mouth: + dentures (full upper) and + macroglossia; no chipped teeth and no loose teeth Thyromental Distance: > or= 3.5 Finger Breadths Mallampati Class: II Neck normal visual inspection and + facial hair (mustache); neck extension not limited Respiratory normal respiratory effort, lungs clear to auscultation + prolonged expiratory phase Cardiovascular RRR, no murmur, no edema Vessels: no carotid bruit Lab Results Anesthesia Preop Results Results Anesthesia Widget: WBC 6.58 K/uL (4.8-10.8) 10/05/20 Hgb 14.8 g/dL (14.0-18.0) 10/05/20 Hct 43.4 % (42-52) 10/05/20 Plt 130 K/uL (130-400) 10/05/20 Na 139 mmol/L (136-145) 10/05/20 K 5.2 mmol/L (3.5-5.1) H 10/05/20 Cl 107 mmol/L (98-107) 10/05/20 CO2 29 mmol/L (21-32) 10/05/20 BUN 27 mg/dl (7-18) H 10/05/20 Creat 1.33 mg/dl (0.6-1.4) 10/05/20 Glucose Level 188 mg/dl (70-99) H 10/05/20 PT 10.3 Seconds (9.0-12.0) 10/05/20 PTT 25.6 Seconds (21.0-31.0) 10/05/20 INR 1.0 (0.9-1.1) 10/05/20 Blood Type O Positive 10/05/20 Antibody Screen NEGATIVE 10/05/20 Lab Comments: *Nonfasting glucose. Pt reported "borderline" DM. No A1C on file, specimen no longer available to add A1C. Testing Electrocardiogram Date: 10/05/20 Findings: + SB @ (51bpm) Chest X-Ray Date: 10/05/20 FINDINGS: PA and lateral chest radiographs are compared to study dated 1 06/11/2015 and correlated with chest CT dated 06/19/2018. The cardiomediastinal silhouette is unremarkable noting atherosclerotic calcification of the thoracic aorta. Chronic interstitial thickening is similar to previous. There are numerous calcified granulomas. No airspace consolidation or pleural effusion is identified. A nipple shadow projects over the left lung base. Scarring/atelectasis is noted at the lung bases. There is no pneumothorax. The skeletal structures are osteopenic. The bony thorax appears intact. Fusion hardware is partially visualized in the lumbar spine. IMPRESSION: No active disease in the chest.
--- NOTE | 2020-10-29 19:55 | History and Physical Report ---
DATE OF ADMISSION: 11/02/2020 CHIEF COMPLAINT: Persistent and progressive right hip and groin pain. HISTORY OF PRESENT ILLNESS: The patient is an 80-year-old gentleman well known to me from partial kn ee replacements in the past. He now presents for surgical treatment of his right hip. He has a khalif ral-year history of increasing right hip pain and discomfort that has gradually gotten worse over . He has been through extensive conservative treatment for his back as he has had 3 back surgeries as well as through pain clinic. They tried to nerve block, which did not really help him at all. He had an intra-articular hip joint injection, which took about 75% of his pain away for a while. His pain has come back. He is unable to play golf due to the pain. He is frustrated by this. He cannot walk any long distances. He described groin pain. No numbness. His x-ray showed advanced hip arth ritis and he would like to have his hip fixed. Of note, he does have a history of bilateral partial knee replacements as well as 3 previous spine pineda rgeries. PAST MEDICAL HISTORY: 1. Coronary artery disease, status post cardiac stent placement x3 in 2001. 2. Elevated cholesterol. 3. Hypertension. 4. Lung nodule. 5. Borderline diabetes. We are going to treat that with diet. 6. Low back pain/sciatica. 7. BPH. PAST SURGICAL HISTORY: Includes, 1. Back surgery x3, one in 1989, one in 2009, and one in 2012. 2. Right partial knee replacement done in 2016. 3. Left partial knee replacement done in 2007. 4. Colonoscopy. 5. Herniorrhaphy. 6. Appendectomy. 7. Vasectomy. ALLERGIES: SULFA. CURRENT MEDICATIONS: Include, 1. Aspirin 325 once daily. 2. Atenolol 50 mg daily. 3. Atorvastatin 20 mg a day. 4. Levothyroxine 100 mcg a day. 5. Tamsulosin 0.4 mg a day. 6. Levetiracetam 250 mg twice a day. SOCIAL HISTORY: Significant for an 80-year-old male. He lives in [place]. Very avid [employer]. M sheila. Does not smoke. No significant alcohol intake. FAMILY HISTORY: Noncontributory. REVIEW OF SYSTEMS: Significant for heart history. No current cardiac symptoms. No chest pain or sh ortness of breath. No history of DVT or PE. No known bleeding problems. PHYSICAL EXAMINATION: GENERAL: A healthy, pleasant, elderly male. Looks to be in pretty good health. HEENT: Benign. NECK: Supple, no lymphadenopathy. LUNGS: Clear to auscultation. HEART: Regular rate and rhythm. ABDOMEN: Soft, nontender, nondistended. EXTREMITIES: Grossly neurovascularly intact except as follows; examination of the right hip reveals the patient walks with a limp. Leg lengths appear pretty clinically normal. He has a very stiff hip with internal rotation to neutral, which recreates pain. Negative straight leg raise. Examination of both knees reveals well-healed incision. No significant swelling or effusions on either side. Ra nge of motion 0-125. X-RAYS: X-rays of the right hip reveal advanced hip arthritis. He has got complete loss of his supe rior joint space. 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 A little bit of Cam type impingement. X-rays of both knees reveal bilateral partial knee replacement. Components looked to be in good posi tion. No signs of problems. IMPRESSION: An 80-year-old male status post a host of medical and surgical treatments including 3 ba ck surgeries and 2 knee surgeries with underlying cardiac disease, status post stent placement and hy pertension, elevated cholesterol, and borderline diabetes with advanced right hip degenerative joint disease. He has failed conservative treatment and cannot maintain an active lifestyle and he would l olga to have his right hip fixed. PLAN: We will take him to the operating room and do a right total hip replacement. The risks and b enefits of this procedure were explained to the patient including but not limited to DVT, PE, , infection, neurological injury, vascular injury, bleeding problem, pain, limited range of motion, sti ffness, failure to relieve his symptoms, incomplete relief of symptoms, fracture, leg length inequali ty, nerve palsy, etc. The patient understands and desires to proceed. Informed consent was obtained . I did tell him that this is not going to help his back issues, but it should help with his groin and thigh pain. As far as discharge plans, he is planning to be discharged to home using [employer] [employer]. He will take his atenolol on the morning of surgery. Job ID: [id number]
[~2020-11-02 07:55] MED LIST changes: -ACET-1138 PO; +ACETAMINOPHEN 500 MG TAB PO SCH; -ASPEC325 PO; -ATEN-174 PO; -ATOR-22 PO; +BUPIVACAINE 0.5 % 5 MG/1 ML PF 10ML VIAL ONE; +FAMOTIDINE 20 MG TAB PO SCH; +GABAPENTIN 300 MG CAP PO SCH; -GLC/500 PO; -GLIM1TAB2 PO; +LACTATED RINGER'S 1,000 ML IV SCH; -LEVO100T7 PO; +LR 500ML BOLUS, THEN 15ML/HR IV SCH; -PSYL0.524 PO; +TRANEXAMIC ACID 1,000 MG **IV Pre-op IV SCH; -ULT50X PO; +ceFAZolin 2000MG 2,000 MG/15 ML SYR IV SCH
--- NOTE | 2020-11-02 08:32 | History & Physical Bridge Note ---
Date of Service November 02, 2020 History & Physical Bridge Note I have examined the patient, reviewed the History & Physical and in the interval since the performance of the History & Physical I have noted the following changes of clinical significance: no changes noted
[2020-11-02] MEDS ORDERED: MoRPHine SULFATE PF 1 MG/ML 10 ML AMP/VIAL ONE (09:32)
[2020-11-02] MEDS ORDERED: MIDAZOLAM HCL 1 MG/ML 2ML VIAL ONE (09:32)
[2020-11-02] MEDS ORDERED: ONDANSETRON INJ 2 MG/ML 2 ML VIAL ONE (09:32)
[2020-11-02] MEDS ORDERED: PROPOFOL IV EMULSION 10 MG/ML 20 ML VIAL IV ONE (09:32)
[2020-11-02] MEDS ORDERED: fentaNYL citrate 100 MCG/2 ML VIAL IV PRN (09:58)
[2020-11-02] MEDS ORDERED: ePHEDrine sulfate 50 MG/ML AMP IV PRN ×2 (09:58→16:32)
[2020-11-02] MEDS ORDERED: HYDROmorphone INJ 2 MG/ML SYR/VIAL IV PRN (09:58)
[2020-11-02] MEDS ORDERED: ATROPINE SULFATE 0.1 MG/ML 10ML SYR IV PRN (09:58)
[2020-11-02] MEDS ORDERED: ONDANSETRON INJ 2 MG/ML 2 ML VIAL IV PRN ×2 (09:58→16:32)
[2020-11-02] MEDS ORDERED: BUPIVACAINE/EPINEPHRINE 0.5% MPF 1:200,000 30 ML VIAL ONE (10:28)
[2020-11-02] MEDS ORDERED: ePHEDrine sulfate 50 MG/ML SYR ONE (11:23)
--- NOTE | 2020-11-02 12:22 | Operative Report ---
Post Operative Report Pre & Post Diagnosis Operation Date: 11/02/20 10:40 Pre-Op Diagnosis: Right Hip Advanced Degenerative Joint Disease Post-Op Diagnosis: Right Hip Advanced Degenerative Joint Disease I identified the patient and participated in the time-out.: Yes Procedure Operation Date: 11/02/20 10:40 Actual Procedures p Right Total Hip Arthroplasty--Uncemented(Right) - Madi Joel MD Surgeon Madi Joel MD Rate Quoting Operator VIRY Adkins Estimated Blood Loss 200 Findings Consistent with Post-Op Diagnosis Fluids 1000 cc Specimens Right femoral head sent for pathology. Drains None. Anesthesia Type Spinal MAC Complications none Disposition Accompanied Patient To Recovery: Yes Disposition: Recovery Room Indications Patient is an 80-year-old very active gentleman has had a host of orthopedic issues in the past. He had 3 previous back operations as well as partial bilateral knee replacements. Over the years he developed increased pain discomfort in his right hip. Really limit his activities and inability to play golf and recreational activities. X-ray show moderate to advanced hip art hritis. He elected proceed with surgical treatment. He was fully aware this is not can to fix his underlying back problems. Description of Procedure Operative implants consisted of: 1. Biomet G7 size 52 mm acetabular shell. 2. [place] hole superintendent stevedoring. 3. 6.5 cancellous acetabular screws 135 mm in length and 1 to 20 mm length. 4. Highly cross-linked polyethylene liner with a 52 mm outer diameter, 36 mm inner diameter with a culver placed inferior and posterior. 5. DePuy Corail size 11 KLA femoral stem. 6. +5/36 mm ceramic articular ball. The patient was taken to the operating, identified, and placed on the operating table supine position but all contractors were properly padded. IV antibiotics tried by anesthesia team. A spinal anesthetic and been implemented holding area. Figueredo catheter was placed in sterile fashion. Patient was then placed in the left lateral decubitus position. An axillary roll was placed. A Stulberg hip positioner was used for positioning. The right hip and leg were then prepped and draped in usual sterile fashion. A posterior lateral approach of the right hip was then performed to a curvilinear incision centered over the greater trochanter. Sharp dissection got through subcutaneous tissue down below the IT band gluteal fascia the IT band gluteal fascia was incised longitudinally in line with skin incision. The underlying greater bursa was excised. The piriformis and external rotators were then tagged and taken off the posterior aspect hip joint capsule. Great care was taken throughout the procedure protect the sciatic nerve at all times. Posterior capsulotomy was then performed leaving a large flap for later repair. Hip was internally rotated and dislocated. A femoral neck osteotomy cut was made with Final Cut 10 mm above the lesser trochanter. Femoral head was removed and sent for pathology. The femur was retracted anteriorly. Attention drawn the acetabulum. The acetabular labrum was excised per the pulmonary fat was excised. Sequential reaming the acetabular was then performed to a size 43 and progressing up to 51. I did reamed a little bit with a 52 reamer and then placed a 52 mm Biomet G7 acetabular shell in about 20-20 5 degrees of anteversion and 40 degrees lateral opening. I did antevert this a little extra due to his multiple spine surgeries and previous fusion. Attention drawn the femur. The proximal femur was entered with a cookie-cutter followed by canal finder. I then broached begin the size 8 and progressing up to 11. Got excellent fit at 11. Trialed the hip and the +5 articular ball was fully stable in full extension and external rotation and flexion to 9 degrees internal rotation to over 50 degrees. I did elect to place a culver inferior and posterior as this patient is an avid golfer and went to maximize his stability in flexion. We elect to place these implants. All trial implants were removed. An apex hole superintendent stevedoring was placed but highly cross-linked polyethylene liner with a culver placed inferior and posterior was then placed. A DePuy size 11 KLA femoral stem was impacted in position. A +5/36 mm ceramic articular ball was placed. Hip was located once again found to be stable. Attention drawn toward closing. Wounds irrigated with copious amounts of pulsatile lavage solution. I did inject locally with 60 cc of half percent Marcaine with epinephrine. The posterior capsule and external rotators were then repaired through drills in the posterior trochanter with #2 Tycron suture. The IT band gluteal fascia then cl osed #1 PDS suture in a running fashion the subcutaneous tissue then closed with 2 layers the deep layer #1 Vicryl suture and subcutaneous tissues with 2-0 Dexon suture in a buried interrupted fashion the skin was closed skin roselyn. Leg was then cleaned dried a sterile dressing was Xeroform, 4 x 4's, sterile ABD pad, foam tape was applied. Patient then transferred to the recovery room in stable condition. The patient tolerated the procedure well and there were no complications. Bonilla Adkins, my physician diver assistant, was present for the entire procedure. His assistance was essential and required for appropriate patient positioning, prepping and draping, surgical exposure, performing the technical details of the operation, placement the implants, closure of the wound, and placement of the sterile bandage. I attest to the content of the Intraoperative Record and any orders documented therein. Any exceptions are noted below.
--- NOTE | 2020-11-02 13:09 | XRay Report ---
XR hip 1V RT w pelvis HISTORY: 80 years-old Male IN PACU - A/P PELVIS and LATERAL HIP right hip total joint arthroplasty COMPARISON: CT abdomen and pelvis 12/25/2017 TECHNIQUE: AP view the pelvis with crosstable lateral view of the right hip FINDINGS: Moderate left hip osteoarthritis. Right hip total joint arthroplasty. Expected postoperative soft tis daniel swelling with deep tissue air. No acute fracture or unexpected opaque foreign body. Lateral skin roselyn. IMPRESSION: Right hip total joint arthroplasty with expected postoperative changes. ACT 112: Negative or not required by law. The above report was generated using voice recognition software. It may contain grammatical, syntax o r spelling errors. Electronically signed by: Jj Coe M.D. 11/02/2020 1:08 PM
--- NOTE | 2020-11-02 13:28 | Anesthesiology Progress Note ---
Date of Service November 02, 2020 Anesthesia Post Procedure Vital Signs Vital Signs: Temp Pulse Pulse Resp BP Pulse Ox 11/02/20 13:00 36.4 C L 68 23 105/72 94 11/02/20 12:50 36.4 C L 76 21 113/61 92 11/02/20 12:40 72 16 109/58 L 96 11/02/20 12:30 77 16 102/64 97 11/02/20 12:20 81 16 82/63 L 98 11/02/20 12:11 36.0 C L 86 16 110/59 L 98 11/02/20 09:15 36.4 C L 51 L 20 154/75 H 98 Transfer of Care Handoff Completed per policy Notes Mental Status: alert / awake / arousable and participated in evaluation Patient Amnestic to Procedure: Yes Nausea / Vomiting: adequately controlled Pain: adequately controlled Airway Patency, RR, SpO2: stable & adequate BP & HR: stable & adequate Hydration State: stable & adequate Anesthetic Complications: no major complications apparent and Pt Satisfied with anesthetic care
[2020-11-02] MEDS ORDERED: GLUCOSE 40% GEL 15 GM TUBE PO PRN (13:48)
[2020-11-02] MEDS ORDERED: GLUCOSE 10 TABS/TUBE PO PRN (13:48)
[2020-11-02] MEDS ORDERED: bisacodyL 10 MG SUPP PR PRN (13:48)
[2020-11-02] MEDS ORDERED: MAGNESIUM HYDROXIDE SUSP 30 ML UDC PO PRN (13:48)
[2020-11-02] MEDS ORDERED: CARBOHYDRATES FOR HYPOGLYCEMIA PO PRN (13:48)
[2020-11-02] MEDS ORDERED: GLUCAGON FOR INJ 1 MG VIAL SQ PRN (13:48)
[2020-11-02] MEDS ORDERED: NALOXONE HCL 0.4 MG/1 ML VIAL/CARP IV PRN ×2 (13:48→16:32)
[2020-11-02] MEDS ORDERED: DEXTROSE 50% 50 ML SYRINGE IV PRN (13:48)
[2020-11-02] MEDS ORDERED: ALUMINUM/MAGNESIUM SUSP 30 ML UDC PO PRN (13:48)
[2020-11-02] MEDS ORDERED: PHARMACY GLYCEMIC MGMT CONSULT PRN (13:55)
--- NOTE | 2020-11-02 14:28 | Pharmacy Report ---
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 * HbA1c ordered for tomorrow ASSESSMENT: * CS is a 80 year old male POD #0 s/p right total hip arthroplasty * no perioperative steroids administered * Preop BSG of 165 mg/dL - assuming that diet alone is inadequate to control patient's diabetes * Will check HbA1c to assess * Novolog only for now (hold basal) * Dexamethasone 10 mg IV x 1 ordered for tomorrow morning - will reassess basal in AM PLAN FOR INPATIENT GLYCEMIC CONTROL: * Basal insulin * Hold * Bolus insulin * NovoLog per scale ACHS or Q6hrs while NPO * Goal Range: Low 120 mg/dL - High 150 mg/dL * Correction Factor: 30 mg/dL/unit * Nutritional / Prandial insulin per carb ratio of 1 unit per 10 grams CHO consumed PLAN FOR DISCHARGE: * tbd pending HbA1c
[2020-11-02] MEDS: SODIUM CHLORIDE 0.9% 1000ML 1,000 ML IV SCH ×2 (15:21→23:24)
[2020-11-02] MEDS: ACETAMINOPHEN 500 MG TAB PO SCH ×2 (16:17→21:10)
[2020-11-02] MEDS: INSULIN ASPART 100 UNITS/ML 3 ML PEN SC SCH ×3 (16:21→23:30)
[2020-11-02] MEDS: KETOROLAC TROMETHAMINE 15 MG/ML VIAL IV SCH ×2 (16:29→23:24)
[2020-11-02] MEDS ORDERED: MoRPHine SULFATE PF 1 MG/ML 10 ML AMP/VIAL INT SPINAL ONE (16:32)
[2020-11-02] MEDS ORDERED: NALOXONE HCL 1 MG in SODIUM CHLORIDE 0.9% 1000ML 1,000 ML IV PRN (16:32)
[2020-11-02] MEDS ORDERED: LACTATED RINGER'S 500 ML IV PRN (16:32)
[2020-11-02] MEDS ORDERED: diphenhydrAMINE 50 MG/ML VIAL IV PRN (16:32)
[2020-11-02] MEDS ORDERED: MEPERIDINE HCL 25 MG/ML CARP/VIAL IV PRN (16:32)
[2020-11-02] MEDS ORDERED: NALBUPHINE HCL INJ 10 MG/ML AMP IV PRN (16:32)
[2020-11-02] MEDS ORDERED: NALOXONE HCL 0.08 MG in SYRINGE 1.8 ML IV PRN (16:32)
[2020-11-02] MEDS ORDERED: SODIUM CHLORIDE 0.9% 1000ML 1,000 ML IV SCH (16:45)
[2020-11-02] MEDS ORDERED: DC INTRASPINAL MORPHINE SCH (16:45)
[2020-11-02] MEDS ORDERED: NO NARCOTICS OR SEDATIVES SCH (16:45)
[2020-11-02] MEDS ORDERED: TRANEXAMIC ACID / 0.7% NACL 1,000 MG/100 ML BAG IV SCH (18:14)
[2020-11-02] MEDS: ASCORBIC ACID 500 MG TAB PO SCH (18:23)
[2020-11-02] MEDS: ceFAZolin 1000MG 1,000 MG/7.5 ML SYR IV SCH (18:23)
[2020-11-02] MEDS ORDERED: SENNA 8.6 MG TAB PO SCH (21:00)
[2020-11-02] MEDS ORDERED: ATORVASTATIN 20 MG TAB PO SCH (21:00)
[2020-11-02] MEDS ORDERED: ATENOLOL 50 MG TABLET PO SCH (21:00)
[2020-11-02] MEDS ORDERED: TAMSULOSIN HCL 0.4 MG CAP PO SCH (21:00)
[2020-11-02] MEDS: DOCUSATE SODIUM 100 MG CAP PO SCH (21:07)
[2020-11-02] MEDS: ASPIRIN 325 MG ECTAB PO SCH (21:07)
[2020-11-02] MEDS: levETIRAcetam 500 MG TAB PO SCH (21:08)
[2020-11-03] MEDS ORDERED: INSULIN ASPART 100 UNITS/ML 3 ML PEN SC SCH (02:00)
[2020-11-03] MEDS ORDERED: traMADol HCL 50 MG TABLET PO PRN (03:30)
[2020-11-03] MEDS ORDERED: HYDROmorphone INJ 0.5 MG/0.5 ML SYR IV PRN (03:30)
[2020-11-03] MEDS ORDERED: ONDANSETRON INJ 2 MG/ML 2 ML VIAL IV PRN (03:30)
[2020-11-03] MEDS ORDERED: METOCLOPRAMIDE HCL INJ 5 MG/ML 2 ML VIAL IV PRN (03:30)
[2020-11-03] MEDS: KETOROLAC TROMETHAMINE 15 MG/ML VIAL IV SCH ×2 (03:55→10:03)
[2020-11-03] MEDS: ceFAZolin 1000MG 1,000 MG/7.5 ML SYR IV SCH (03:55)
[2020-11-03 05:36] LABS: Basophils # (auto) 0.01 K/uL (0-0.2); Basophils % (auto) 0.2 %; Eosinophils # (auto) 0.08 K/uL (0-0.5); Eosinophils % (auto) 1.4 %; Hematocrit (blood only) 32.6 % (42-52); Hemoglobin 11.3 g/dL (14.0-18.0); Immature Granulocytes # (auto) 0.01 K/uL (0.00-0.02); Immature Granulocytes % (auto) 0.2 %; Lymphocytes % (auto) 13.8 %; Mean Corpuscular Hemoglobin 30.6 pg (25-34); Mean Corpuscular Hgb Conc 34.7 g/dL (32-36); Mean Corpuscular Volume 88.3 fL (80-100); Mean Platelet Volume 9.9 fL (7.4-10.4); Monocytes % (auto) 13.8 %; Neutrophils # (auto) 4.08 K/uL (1.4-6.5); Neutrophils % (auto) 70.6 %; Platelet Count 104 K/uL (130-400); RDW Coefficient of Variation 14.3 % (11.5-14.5); Red Blood Count 3.69 M/uL (4.7-6.1); White Blood Count 5.78 K/uL (4.8-10.8)
[2020-11-03 06:01] LABS: Calcium 8.1 mg/dl (8.5-10.1); Creatinine Clr Calc Pharmacy 40.4 ml/min; Est GFR (African American) 57.2 ml/min; Est GFR (Non-African American) 49.3 ml/min; Potassium 4.6 mmol/L (3.5-5.1)
[2020-11-03] MEDS: ACETAMINOPHEN 500 MG TAB PO SCH ×2 (06:03→13:44)
[2020-11-03] MEDS ORDERED: LEVOTHYROXINE SODIUM 88 MCG TABLET PO SCH (06:30)
[2020-11-03 07:02] LABS: Estimated Average Glucose 166 mg/dl; Hemoglobin A1C 7.4 % (4.5-5.6)
[2020-11-03] MEDS ORDERED: dexAMETHasone 10 MG in SYRINGE 0 ML IV SCH (08:00)
[2020-11-03] MEDS ORDERED: NovoLIN-N (NPH) PER UNIT CHARGE SQ ONE (08:30)
[2020-11-03] MEDS: ASPIRIN 325 MG ECTAB PO SCH (08:35)
[2020-11-03] MEDS: levETIRAcetam 500 MG TAB PO SCH (08:36)
[2020-11-03] MEDS: DOCUSATE SODIUM 100 MG CAP PO SCH (08:36)
[2020-11-03] MEDS: ASCORBIC ACID 500 MG TAB PO SCH (08:45)
[2020-11-03] MEDS: INSULIN ASPART 100 UNITS/ML 3 ML PEN SC SCH ×2 (08:50→12:55)
[2020-11-03] MEDS ORDERED: MULTIVITAMIN TAB PO SCH (09:00)
--- NOTE | 2020-11-03 10:39 | Pharmacy Report ---
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 * HbA1c: 7.4% (11/03/20) ASSESSMENT: 11/03: * BSGs well-controlled postoperatively, 134 and 102 mg/dL * Received only 4 units of bolus insulin yesterday * Fasting BSG of 167 mg/dL this morning * Will order one-time conservative dose of NPH with IV dexamethasone * Lunch BSG of 281 mg/dL -> per RN, patient did start eating lunch prior to BSG check * Will maintain current Novolog parameters despite this, as NPH dose was likely inadequate * Will also add 0000 check tonight 11/02: * CS is a 80 year old male POD #0 s/p right total hip arthroplasty * no perioperative steroids administered * Preop BSG of 165 mg/dL - assuming that diet alone is inadequate to control patient's diabetes * Will check HbA1c to assess * Novolog only for now (hold basal) * Dexamethasone 10 mg IV x 1 ordered for tomorrow morning - will reassess basal in AM PLAN FOR INPATIENT GLYCEMIC CONTROL: * Basal insulin - add NPH w/ steroid * NPH 20 units (~0.25 unit/kg) SC x 1 with IV dexamethasone * Bolus insulin - tighten * NovoLog per scale ACHS or Q6hrs while NPO * Goal Range: Low 120 mg/dL - High 150 mg/dL * Correction Factor: 20 mg/dL/unit * Nutritional / Prandial insulin per carb ratio of 1 unit per 7 grams CHO consumed PLAN FOR DISCHARGE: * HbA1c of 7.4% is reasonable for patient based on age (less than 8%) * If tighter glycemic control is desired, could consider addition of metformin with careful monitoring (current eGFR is 49 mL/min) * Metformin XR 500 mg PO daily with evening meal (Typically the XR formulation of metformin is better tolerated than the immediate release formulation). * Continue to titrate metformin dosing upwards as recommended. Dosage increases should be made in increments of 500 mg weekly, up to 2,000 mg/day PO, given in divided doses. * Support Patient Self-Management * Healthy Lifestyle (diet, exercise, and smoking cessation) * Disease self-management (SMBG) * Prevention of complications (BP, Lipid goals, Immunizations) * Consider outpatient Diabetes Self-Management Education & Support
--- NOTE | 2020-11-03 15:02 | Progress Notes ---
DATE OF SERVICE: 11/03/2020. SUBJECTIVE: An 80-year-old gentleman postop day #1 from a right hip replacement. He is doing pretty well. Really not having much pain. Therapy is going reasonably well so far. No chest pain or shor tness of breath. Not feeling dizzy or lightheaded. OBJECTIVE: VITAL SIGNS: Temperature 36.7. Vital signs stable. GENERAL: Physical exam shows a pleasant, elderly male. He is sitting up in bed, responds appropriat arcenio, but he seems a little bit confused. LUNGS: Clear to auscultation. CARDIOVASCULAR: Heart has a regular rate and rhythm. ABDOMEN: Soft, nontender, nondistended. EXTREMITIES: Grossly neurovascularly intact except as follows. Examination of the right hip reveals the dressing to be clean, dry and intact. Hip is located. Leg lengths are equal. He can dorsiflex and plantarflex his foot appropriately. He can do a good straig ht leg raise. LABORATORY DATA: Hemoglobin 11.3. Hematocrit 32.6. Electrolytes are stable. ASSESSMENT: An 80-year-old gentleman postop day 1 from right hip replacement, doing pretty well. Jus t seemed to be just slightly confused, which could be related to the anesthesia where some pain medic vj or some mild sundowning. He responds appropriately. Hip is located. He is neurologically inta ct. PLAN: 1. DVT prophylaxis include thigh-high TEDs, SCDs, and aspirin twice a day. 2. PT/OT. He can weight bear as tolerated. Right total hip protocol. 3. Pain control, doing okay with current pain regimen. We are going to limit any narcotics at all i n order to avoid any confusion issues at this time, we used Tylenol and limited Toradol. 4. Disposition: He is planning to be discharged to home with some home health once medically stable and does okay in therapy. Job ID: [id number]
[2020-11-04] MEDS ORDERED: INSULIN ASPART 100 UNITS/ML 3 ML PEN SC SCH
--- NOTE | 2020-11-05 09:09 | Discharge Summary ---
Date of Service November 05, 2020 Discharge Data Procedures Performed Operation Date: 11/02/20 10:40 Actual Procedures p Right Total Hip Arthroplasty--Uncemented(Right) - Madi Joel MD Hospital Course (1) Status post total hip replacement, right: This is an 80 year old patient admitted on 11/02/20 and underwent total hip arthroplasty. He tolerated the procedure well and there were no complications. Transferred to the PACU post op and later to the orthopedic floor for further care. He was given ancef for antibiotic prophylaxis. He was also given EVA stockings, SCDs, and aspirin for DVT prophylaxis. Hemoglobin, hematocrit, and vital signs were monitored during his hospital stay and remained stable. Did not require any blood transfusions. There were no complications during his hospital stay. He did have some confusion post op. By post op day #1 the patient was tolerating a diabetic diet, pain was reasonably controlled with oral pain medicine, and he was participating in physical therapy. On post op day #1 the patient was discharged home and set up with home health care. He was given printed discharge instructions including prescriptions for extra strength tylenol, aspirin, and tramadol. Continue physical therapy, weight bearing as tolerated. Continue hip precautions. Continue EVA stockings. Follow up approximately 2 weeks post op or sooner if there are problems or concerns. Coding Level of Care Code None Diagnoses Status post total hip replacement, right Z96.641
== END 2020-11-03 16:29 | disposition home health service (06) ==
LOC: 3E 07:55 → ASU 07:55